=== PATIENT | male | born 1985 | race Caucasian/White ===

== ENCOUNTER 2018-05-08 18:24 | Emergency (ER) | payer MEDICAID ==
[2018-05-08] MEDS ORDERED: HALOPERIDOL LACT 5 MG/ML INJ IM ONE (18:47)
[2018-05-08] MEDS ORDERED: LORazepam 2 MG/ML INJ IM ONE (18:47)
--- NOTE | 2018-05-08 18:47 | EDPHY ---
HPI/HX/ROS/PE/MDM Narrative: CHIEF COMPLAINT: Medical clearance for senior care HPI: This is a 32 y/o male who arrives in [facility] custody for a medical clearance for senior care. Per PD officer, the patient was at [employer] picking berries off the wall and trying to sell them to people. Staff asked him to leave, which he refused to do, so [facility] arrested him for trespassing. Upon arrival at the senior care, the senior care RN "wanted him cleared for excited delirium because he was sweating." The patient is restrained upon arrival here and admits to marijuana use, but is otherwise refusing to speak to me. He does not report any medial complaints. He refuses to be examined. REVIEW OF SYSTEMS: Unable to obtain as patient is not cooperative. PMH: Unable to obtain SOCIAL HISTORY: In [facility] custody. Admits to marijuana use. Denies other drug use. PHYSICAL EXAM: General:Patient is alert, agitated and combative. ENT:Eyes are normal to inspection. ENT inspection normal. Neck: Normal inspection. Full range of motion. Respiratory:No respiratory distress. Cardiovascular:Tachycardic. Extremities: Normal appearance. Full range of motion. Neuro: No gross deficits. ED Course: No visible trauma. Moving all extremities and shouting. Possible methamphetamine use. 5mg IM Haldol, 2mg IM Ativan ordered. 20:05 - Patient sleeping comfortably. Normal respirations. Arousable. I think the patient is medically clear for discharge to senior care with PD. MDM: This patient presents with clear stimulant use, likely some combination of meth and/or cocaine. He responded well to IM haldol and ativan and his mental status has greatly improved. His vital signs have normalized and he is afebrile. He will require further monitoring but I think he is safe for transport to senior care at this point. - Data Points Medications Given: Discontinued Medications Haloperidol Lactate (Haldol Injection) 5 mg IM EDNOW ONE Stop: 05/08/18 18:48 Last Admin: 05/08/18 18:57 Dose: 5 mg Lorazepam (Ativan Injection) 2 mg IM EDNOW ONE Stop: 05/08/18 18:48 Last Admin: 05/08/18 18:57 Dose: 2 mg General Time Seen by Provider: 05/08/18 18:32 Initial Vital Signs: Initial Vital Signs Temperature (C) 36.8 C 05/08/18 18:25 Heart Rate 148 H 05/08/18 18:25 Respiratory Rate 18 05/08/18 18:25 Blood Pressure 180/120 H 05/08/18 18:25 O2 Sat (%) 96 05/08/18 18:25 O2 Delivery Mode Room Air Allergies/Adverse Reactions: No Known Allergies Allergy (Unverified 05/08/18 18:31) Home Medications: Medication Instructions Recorded NK [No Known Home Meds] 05/08/18 Departure - Departure Disposition: Home, Routine, Self-Care Clinical Impression: Stimulant abuse Condition: Good Instructions: Additional Information Additional Instructions: Patient is Medically Clear for Penitentiary. Referrals: Patient,NotPresent [Primary Care Provider] - As per Instructions Report Scribed for: Darwin Cohen Report Scribed by: Bria Barba Date of Report: 05/08/18 Time of Report: 20:41 Physician Review and Approval Statement: Portions of this note were transcribed by an ED scribe. I personally performed the history, physical exam, and medical decision making; and confirm the accuracy of the information in the transcribed note.
[2018-05-08 20:31] VITALS: BP 105/72
== END 2018-05-08 20:31 | disposition home or self-care (01) ==
DX: F15.10 Other stimulant abuse, uncomplicated (principal)
CPT/HCPCS: J1630; J2060

== ENCOUNTER 2018-05-14 16:43 | Emergency (ER) | payer MEDICAID ==
--- NOTE | 2018-05-14 16:50 | EDPHY ---
H & P Time Seen by Provider: 05/14/18 16:48 HPI/ROS: CHIEF COMPLAINT: Agitated HISTORY OF PRESENT ILLNESS: The patient is brought to the emergency department by paramedics after he was found to be agitated. The patient was seen in the emergency department approximately week ago with a similar presentation. At that point time he was felt to be under the influence of methamphetamine. The patient was treated with Haldol and Ativan and ultimately stabilized. He was transferred to the assisted. The patient today is hypervigilant and nonsensical. He denies any acute medical complaints. REVIEW OF SYSTEMS: A comprehensive 10 point review of systems is otherwise negative aside from elements mentioned in the history of present illness. Source: Patient Exam Limitations: No limitations - Medical/Surgical History Hx Asthma: No Hx Chronic Respiratory Disease: No Hx Diabetes: No Hx Cardiac Disease: No Hx Renal Disease: No Hx Cirrhosis: No Hx Alcoholism: No Hx HIV/AIDS: No Hx Splenectomy or Spleen Trauma: No Other PMH: hepatitis c - Social History Smoking Status: Current every day smoker - Physical Exam Exam: General Appearance: Hyperstimulated, agitated Eyes: Pupils equal and round no pallor or injection ENT, Mouth: Mucous membranes moist Respiratory: Mild tachypnea Cardiovascular: Tachycardic Gastrointestinal: Abdomen is soft and nontender, no masses, bowel sounds normal Neurological: A&O, normal motor function, normal sensory exam, normal cranial nerves Skin: Warm and dry, no rashes Musculoskeletal: Neck is supple nontender Extremities: symmetrical, full range of motion Psychiatric: Patient is oriented X 3, there is no agitation Constitutional: Initial Vital Signs Temperature (C) 36.4 C 05/14/18 16:47 Heart Rate 118 H 05/14/18 16:47 Respiratory Rate 18 05/14/18 16:47 Blood Pressure 120/85 H 05/14/18 16:47 O2 Sat (%) 98 05/14/18 16:47 O2 Delivery Mode Room Air Allergies/Adverse Reactions: No Known Allergies Allergy (Unverified 05/08/18 18:31) Home Medications: Medication Instructions Recorded NK [No Known Home Meds] 05/08/18 Medical Decision Making ED Course/Re-evaluation: The patient received 10 mg of IM Zyprexa. The patient presents to the ED with likely methamphetamine intoxication. He was chemically sedated with Zyprexa. The patient was placed on a monitor and observed in the emergency department. At 5:42 p.m. The patient is common cooperative. The police would like to take him to assisted which seems appropriate. He has no evidence of a sympathomimetic toxidrome at this point time. - Data Points Medications Given: Discontinued Medications Olanzapine (Zyprexa Injection) 10 mg IM EDNOW ONE Stop: 05/14/18 16:57 Last Admin: 05/14/18 16:50 Dose: 10 mg Departure - Departure Disposition: Home, Routine, Self-Care Clinical Impression: Methamphetamine abuse Condition: Good Instructions: Methamphetamine Abuse (ED) Additional Instructions: You have been given the contact number for [facility] if you desire assistance with your methamphetamine abuse. Referrals: [facility] [Outside] - As per Instructions
[2018-05-14] MEDS ORDERED: OLANZapine 10 MG/2 ML VIAL IM ONE (16:56)
[2018-05-14 18:08] VITALS: BP 105/73
== END 2018-05-14 17:55 | disposition home or self-care (01) ==
LOC: EDUNIT#
DX: F15.10 Other stimulant abuse, uncomplicated (principal)